=== PATIENT | male | born 1975 | race Caucasian/White ===

== ENCOUNTER 2017-12-18 05:44 | Day surgery (SDC) | END 2017-12-18 10:40 | disposition home or self-care (01) ==

== ENCOUNTER 2018-01-01 10:52 | Day surgery (SDC) | END 2018-01-01 17:49 | disposition home or self-care (01) ==

== ENCOUNTER 2018-12-31 06:22 | Day surgery (SDC) | payer BC ==
[~2018-12-31] VITALS: Ht 172.7 cm; Wt 55.6 kg
[2018-12-31] VITALS (10 sets, daily range): BP systolic 112–131; BP diastolic 77–89; PULSE 60–84; RESP 16–18; Ht 172.7 cm; Wt 55.6 kg
[2018-12-31] MEDS ORDERED: LACTATED RINGER'S 1,000 ML IV SCH (08:00)
[2018-12-31] MEDS ORDERED: IOHEXOL 300MG/ML 30 ML BTL ONE (09:00)
[2018-12-31] MEDS ORDERED: CEFAZOLIN 1 GM INJ ONE (09:00)
[2018-12-31] MEDS ORDERED: METOCLOPRAMIDE 10 MG INJ ONE (09:12)
[2018-12-31] MEDS ORDERED: PROPOFOL 20 ML ONE (09:12)
[2018-12-31] MEDS ORDERED: ONDANSETRON 4 MG INJ ONE (09:12)
[2018-12-31] MEDS ORDERED: SUCCINYLCHOLINE CHLORIDE 100 MG/5 ML SYG IV ONE (09:12)
[2018-12-31] MEDS ORDERED: FENTAnyl 50 MCG/ML VIAL ONE (09:13)
[2018-12-31] MEDS ORDERED: FENTAnyl 50 MCG/ML VIAL IV PRN ×3 (09:30)
[2018-12-31] MEDS ORDERED: KETOROLAC 30 MG INJ IV PRN (09:30)
[2018-12-31] MEDS ORDERED: ALBUTEROL 0.083% (NEB) 2.5 MG/3 ML AMP HHN PRN (09:30)
[2018-12-31] MEDS ORDERED: ONDANSETRON 4 MG INJ IV PRN (09:30)
[2018-12-31] MEDS ORDERED: HYDROmorphONE 1 MG/5 ML IV SYRINGE IV PRN ×3 (09:30)
[2018-12-31] MEDS ORDERED: LABETALOL HCL 20MG INJ IV PRN (09:30)
[2018-12-31] MEDS ORDERED: MEPERIDINE 25 MG INJ IV PRN (09:30)
[2018-12-31] MEDS ORDERED: OXYCODONE/ACETAMINOPHEN (5/325) TAB PO PRN ×2 (09:30)
[2018-12-31] MEDS ORDERED: hydrALAzine 20 MG INJ IV PRN (09:30)
[2018-12-31] MEDS ORDERED: DIPHENHYDRAMINE 50 MG INJ IV PRN (09:30)
== END 2018-12-31 11:52 | disposition home or self-care (01) ==
LOC: SDS 06:22
PROVIDERS: ATTEND Urology
DX: N20.0 Calculus of kidney (principal)
CPT/HCPCS: 50590; 74430; J1170; J2175; J2405; J3010; Z7512; Z7610; J0690; J2765; Q9967